=== PATIENT | female | born 1990 | race Caucasian/White ===

== ENCOUNTER → 2020-01-03 15:58 | Outpatient (ROUT) | payer OTHER, MEDICAID, SELFPAY | PROVIDERS: Visit Provider Internal Medicine | DX: L02.214 Cutaneous abscess of groin (principal) | CPT/HCPCS: 87070; 87075; 87077; 87147; 87186; 87205 ==

== ENCOUNTER 2020-03-29 22:02 | Emergency (ER) | payer OTHER, MEDICAID, SELFPAY ==
[2020-03-29 22:10] VITALS: BP 122/62; PULSE 94; RESP 15; TEMP 36.6; O2SAT 98; BMI 33.3
--- NOTE | 2020-03-29 22:55 | ED_ITS ---
HPI - Skin/Abscess/Foreign Bdy General Chief complaint: Skin/Abscess/Foreign Body Stated complaint: STATES HAS AN ABSCESS Time Seen by Provider: 03/29/20 22:23 Source: family Mode of arrival: Family Vehicle History of Present Illness HPI narrative: 29-year-old woman with a history of hidradenitis supurvita affecting her groin. She has had plastic surgery to try to remove some of the glans. She has had prior MRSA infections related to these previously. Yesterday she noticed a bit of tenderness on the inner aspect of the right groin and today noticed an abscess developing. Increasing fullness but no drainage and no warmth or redness. Review of Systems Review of Systems Narrative: Pertinent positive and negative findings as per HPI Remainder of review of systems is otherwise unremarkable for Constitutional: Fevers, chills, weakness ENT: No sore throat, neck pain, ear pain CV: Chest pain, palpitations, dyspnea on exertion Respiratory: Cough, wheeze, dyspnea GI: Nausea, vomiting, diarrhea, change in bowel habits, black or bloody stools : Dysuria, hematuria, flank pain MS: Muscle weakness, numbness, joint swelling or warmth Skin: Rashes, nonhealing lesions Neuro: Syncope, dizziness, tingling Psych: Depression, anxiety, suicidal ideation Endocrine: Fatigue, heat or cold intolerance, very dry skin Heme: Easy bruising or bleeding Allergy: Seasonal rhinorrhea, itchy eyes Patient History Medical History Hidradenitis suppurativa (Acute) Social History Smoking Status: Never smoker Smoking Status: Never smoker Substance Use Type: marijuana Exam Narrative Exam Narrative: General: Alert appropriate in no acute distress Respiratory: Able to speak in full sentences, no obvious respiratory distress Skin: warm and dry, well-healed scars on the inner thigh and groin area. On the inner thigh just as it is joining the labia majora there is a 2 x 3 cm developing fluctuant area with some deeper bruising without surrounding warmth or erythema Neurologic: Grossly intact no obvious asymmetries or abnormalities Psych, appropriate insight and affect, cooperative Initial Vital Signs Initial Vital Signs: Vital Signs Temperature 97.9 F 03/29/20 22:10 Pulse Rate 94 H 03/29/20 22:10 Respiratory Rate 15 03/29/20 22:10 Blood Pressure 122/62 03/29/20 22:10 Pulse Oximetry 98 03/29/20 22:10 Procedures Abscess I/D I&D #1: Site: other (Right groin area) Side (if applicable): right Local Anesthetic: lidocaine 1% and with bicarb Amount of anesthesia used (mL): 5 Technique: incised with #11 blade Amount of fluid expressed (mL): 5 Irrigation: No Packing used?: plain Complications: other (This turned out to be a blood clot that was easily extruded. There was no purulence material no foul odor no sign of infection and no culture was done) Course Orders Ordered: ED Orders 03/29/20 22:58 Wound Culture and Gram Stain Stat Discontinued Medications Lidocaine/Sodium Bicarbonate (Buffered Lidocaine 10 Ml Syr) 10 ml INJ NOW ONE Stop: 03/29/20 23:00 Last Admin: 03/29/20 23:02 Dose: 10 ml Documented by: Vital Signs Vital signs: Vital Signs - 8 hr 03/29/20 22:10 Temperature 97.9 F Pulse Rate 94 H Respiratory Rate 15 Blood Pressure 122/62 Pulse Oximetry 98 Discharge Plan Departure Patient Disposition: Home Clinical Impression: Hidradenitis suppurativa, Hematoma Instructions: DI for Skin Abscess Activity Restrictions/Additional Instructions: Thank you for coming in today This turned out to be a in capsulated blood clot that was easily extruded. There is no sign of infection. I left a small amount of packing to keep the skin for about 24 hours to allow better healing and not leave any e xcess base deeper in the tissue. If you do develop signs or symptoms of infection please return for further evaluation. This should heal up nicely. 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 Referrals: Bashir Montanez MD [Primary Care Provider] -
[2020-03-29] MEDS: LIDO 1%/SOD BICARB 8.4% (10ML) 10 ML SYRINGE INJ (23:02)
[2020-03-29 23:26] VITALS: PULSE 82; O2SAT 98
== END 2020-03-29 23:27 | disposition home or self-care (01) ==
PROVIDERS: Emergency Provider Emergency Medicine; PCP Internal Medicine; Referring Provider Internal Medicine
DX: L73.2 Hidradenitis suppurativa (principal); T14.8XXA Other injury of unspecified body region, initial encounter
CPT/HCPCS: 10060; 99283

== ENCOUNTER → 2020-05-28 15:28 | Outpatient (CLI) | payer OTHER, MEDICAID, SELFPAY ==
[2020-05-29 09:53] LABS: COVID19 Sendout Not Detected (Not Detect)
== END ==
PROVIDERS: PCP Internal Medicine; Visit Provider Student in an Organized Health Care Education/Training Program
DX: Z03.818 Encounter for observation for suspected exposure to other biological agents ruled out (principal)
CPT/HCPCS: 87635

== ENCOUNTER 2021-09-27 10:33 | Emergency (ER) | payer OTHER, MEDICAID, SELFPAY ==
[2021-09-27 10:43] VITALS: BP 133/70; PULSE 97; RESP 14; TEMP 36.9; O2SAT 96; BMI 35.7
--- NOTE | 2021-09-27 10:53 | ED.SKABFB ---
HPI - Skin/Abscess/Foreign Bdy General Chief complaint: Skin/Abscess/Foreign Body Stated complaint: RT THIGH ABSESS Time Seen by Provider: 09/27/21 10:49 Source: patient Mode of arrival: Ambulatory Limitations: no limitations History of Present Illness HPI narrative: The patient has a sore structure on her right thigh, it has been present for several months. It is currently erythematous, swollen and tender. There is no discharge. The site has been waxing waning in size over the past few months. She has a history of pilonidal abscess as well as hidradenitis suppurativa. She is uncertain of the etiology, but thinks this is an abscess also. She has no fever chills. She denies chronic skin problems. Related Data Home Medications Medication Instructions Recorded Confirmed citalopram 20 mg tablet 40 mg PO DAILY 09/27/21 09/27/21 levothyroxine 88 mcg tablet 88 mcg PO QAM 09/27/21 09/27/21 spironolactone 25 mg tablet 25 mg PO DAILY 09/27/21 09/27/21 Previous Rx's Medication Instructions Recorded sulfamethoxazole 800 1 tab PO Q12H 7 Days #14 tab 09/27/21 mg-trimethoprim 160 mg tablet Allergies Allergy/AdvReac Type Severity Reaction Status Date / Time No Known Drug Allergies Allergy Verified 09/27/21 10:47 Review of Systems Constitutional Constitutional: Denies body ache(s), Denies chills, Denies fever(s) and Denies weakness Musculoskeletal Musculoskeletal: Reports as per HPI and Denies numbness Integumentary/Breasts Skin/Breast: Reports as per HPI Neurologic Neurologic: Denies numbness and Denies weakness Patient History Medical History (Updated 09/27/21 @ 11:55 by Schuyler Casey MD) Hidradenitis suppurativa Social History Smoking Status: Never smoker Smoking Status: Never smoker alcohol intake frequency: holidays/special occasions only Substance Use Type: marijuana Exam Initial Vital Signs Initial Vital Signs: Vital Signs Temperature 98.4 F 09/27/21 10:43 Pulse Rate 97 H 09/27/21 10:43 Respiratory Rate 14 09/27/21 10:43 Blood Pressure 133/70 09/27/21 10:43 Pulse Oximetry 96 09/27/21 10:43 Const General: cooperative, healthy appearing and comfortable Skin Other: 2 cm abscess on the right posterior thigh. There is an obvious duct. This is a sebaceous cyst. The surface erythematous, with warmth, fluctuance and induration. There are no red streaks from the site. Procedures Abscess I/D I&D #1: Site: lower extremity (Posterior thigh) Side (if applicable): right Local Anesthetic: lidocaine 1% Amount of anesthesia used (mL): 4 Technique: incised with #11 blade Amount of fluid expressed (mL): 3 Irrigation: Yes Packing used?: iodoform Course Course Course Narrative: I and D was performed a right thigh abscess. The site was cleansed and packed by her nurse. A wound culture was obtained. She is started on Septra DS. Vital Signs Vital signs: Vital Signs - 8 hr 09/27/21 10:43 Temperature 98.4 F Pulse Rate 97 H Respiratory Rate 14 Blood Pressure 133/70 Pulse Oximetry 96 Discharge Plan Departure Patient Disposition: Home Clinical Impression: Infected sebaceous cyst Instructions: DI for Skin Abscess Activity Restrictions/Additional Instructions: Septra DS 2 times daily for 7 days. The prescription has been forwarded to [facility] pharmacy in [place]. Apply warm compresses to the site frequently. Change dressings as needed. Follow-up with your doctor next week, return here if necessary. Prescriptions: New sulfamethoxazole-trimethoprim 800-160 mg tablet 1 tab PO Q12H 7 Days Qty: 14 RF: 0 No Action spironolactone 25 mg tablet 25 mg PO DAILY RF: 0 levothyroxine 88 mcg tablet 88 mcg PO QAM RF: 0 citalopram 20 mg tablet 40 mg PO DAILY RF: 0 Referrals: Doreen Samuel PA-C [Primary Care Provider] -
[2021-09-27] MEDS: LIDOCAINE 1% (PF) 4 ML INJ (11:00)
[2021-09-27] MEDS: LIDOCAINE/PRILOCAINE 5 GM TOP (11:01)
[2021-09-27] MEDS: TRIMETH/SULFA 160/800 (DS) TABLET 1 TAB PO (11:54)
== END 2021-09-27 12:03 | disposition home or self-care (01) ==
PROVIDERS: Emergency Provider Emergency Medicine; PCP Physician Assistant
DX: L72.3 Sebaceous cyst (principal)
CPT/HCPCS: 10060; 87070; 87077; 87147; 87186; 87205; 99283